=== PATIENT | female | born 1995 | race Caucasian/White ===

== ENCOUNTER 2017-09-14 08:23 | Outpatient (CLI) | payer OTHER ==
--- NOTE | 2017-09-14 13:09 | Ultrasound Report ---
COMPLETE ABDOMINAL ULTRASOUND: 09/14/2017 CLINICAL INDICATION: Pain. TECHNIQUE: Real-time scanning was performed with product representative static images obtained. FINDINGS: The liver measures 14.6 cm. Hepatic echotexture is normal. No intrahepatic biliary dilatat ion or focal parenchymal lesion is present. The common bile duct measures 3 mm. The gallbladder is un remarkable, as is the pancreas. The kidneys are normal, with the right measuring 10.8 cm, and the lef t measuring 11.1 cm. The spleen measures 11.6 cm, and demonstrates normal echotexture. The abdominal aorta is normal in caliber throughout. The inferior vena cava is unremarkable. No free fluid is prese nt. IMPRESSION: NORMAL ABDOMINAL ULTRASOUND. JOB #: [id number] EXT JOB #:[id number]
--- NOTE | 2017-09-14 13:25 | Ultrasound Report ---
PELVIC ULTRASOUND: 09/14/2017 CLINICAL INDICATION: Right lower quadrant pain. TECHNIQUE: Transabdominal pelvic ultrasound performed for global evaluation. Transvaginal pelvic ultr asound performed for detailed evaluation. Real-time scanning performed and static images obtained. FINDINGS: The uterus is anteverted, measuring 7.0 x 4.0 x 2.9 cm. The endometrial echo complex measu res 6 mm. There is an IUD present, but it is positioned low in the endometrial canal, extending into the lower uterine segment/upper cervix. No focal myometrial lesion is present. The ovaries are normal , with the right measuring 3.8 x 2.9 x 2.2 cm, and the left measuring 3.4 x 2.7 x 1.6 cm. No free flu id is present. IMPRESSION: IUD POSITIONED LOW IN THE ENDOMETRIAL CANAL, EXTENDING INTO THE UPPER CERVIX. NORMAL OVA ISREAL. JOB #: [id number] EXT JOB #:[id number]
== END 2017-09-14 08:24 | disposition home or self-care (01) ==
LOC: DI 08:23
PROVIDERS: ATTEND Physician Assistant Medical
DX: R10.31 Right lower quadrant pain (principal)
CPT/HCPCS: 76700; 76830; 76856

== ENCOUNTER 2022-01-05 21:04 | Emergency (ER) | payer SELFPAY ==
[2022-01-05 21:37] LABS: BASOPHILS % (AUTO) 0.1 %; EOSINOPHILS % (AUTO) 0.4 %; HCT - HEMATOCRIT 40.7 % (37.0-47.0); HGB - HEMOGLOBIN 13.4 g/dL (12.0-16.0); LYMPHOCYTES # (AUTO) 1.7 10^3/uL (1.5-3.5); LYMPHOCYTES % (AUTO) 17.6 %; MEAN CORPUSCULAR HEMOGLOBIN 32.1 pg (27.0-31.0); MEAN CORPUSCULAR HGB CONC 32.9 g/dL (32.0-36.0); MEAN CORPUSCULAR VOLUME 97.6 fL (81.0-99.0); MEAN PLATELET VOLUME 9.8 fL (7.9-10.8); MONOCYTES # (AUTO) 0.8 10^3/uL (0.0-1.0); MONOCYTES % (AUTO) 8.1 %; NEUTROPHILS # (AUTO) 7.2 10^3/uL (1.5-6.6); NEUTROPHILS % (AUTO) 73.6 %; PLT - PLATELET COUNT 262 10^3/uL (130-450); RED BLOOD COUNT 4.17 10^6/uL (4.20-5.40); RED CELL DISTRIBUTION WIDTH 13.1 % (12.0-15.0); WHITE BLOOD COUNT 9.8 x10^3/uL (4.8-10.8)
[2022-01-05 21:48] LABS: ALBUMIN 4.3 g/dL (3.2-5.5); ALBUMIN/GLOBULIN RATIO 1.4 (1.0-2.2); BILIRUBIN,TOTAL 0.8 mg/dL (0.2-1.0); CREATININE 0.8 mg/dL (0.4-1.0); POTASSIUM 3.8 mmol/L (3.5-5.0); TOTAL PROTEIN 7.3 g/dL (6.7-8.2)
[2022-01-05 23:12] LABS: BILIRUBIN,URINE NEGATIVE (NEGATIVE); GLUCOSE, URINE (UA) NEGATIVE (NEGATIVE); KETONES,URINE (UA) NEGATIVE (NEGATIVE); LEUKOCYTE ESTERASE, URINE TRACE (NEGATIVE); NITRITE,URINE NEGATIVE (NEGATIVE); OCCULT BLOOD,URINE NEGATIVE (NEGATIVE); PH,URINE 7.5 PH (5.0-7.5); PROTEIN,URINE NEGATIVE (NEGATIVE); UROBILINOGEN,URINE 0.2 (NORMAL) E.U./dL (NORMAL)
[2022-01-05 23:13] LABS: CLARITY,URINE CLEAR (CLEAR); HCG UR QUAL NEGATIVE
[2022-01-05 23:19] LABS: BACTERIA,URINE Rare /HPF (None Seen); RBC,URINE None Seen /HPF (0-5); SQUAMOUS EPITHELIAL CELL,UR MANY Squamous (<= Few)
[2022-01-05] MEDS ORDERED: KETOROLAC 30 MG/ML VIAL IM STA (23:38)
--- NOTE | 2022-01-05 23:41 | ED Physician Documentation ---
History of Present Illness - Stated complaint Stated Complaint: UPPER RT ABD PX - Chief complaint Chief Complaint: Abd Pain - History obtained from History obtained from: Patient - Additonal information Additional information: 26-year-old woman, previously healthy p/w 4 months of RUQ abdominal pain / R lower rib pain intermittent, constant during the day today since waking from sleep with sudden onset pain. nonradiating, aching, worse with deep breathing and twisting. 7/10, better with ibuprofen. denies fever, back pain, n/v. some loose stools for the past week. no urinary sx. denies soa or cough, no cp. perc negative. Review of Systems Ten Systems: 10 systems reviewed and negative Constitutional: denies: Fever, Chills Cardiac: denies: Chest pain / pressure Respiratory: denies: Dyspnea, Cough GI: reports: Abdominal Pain, Other (loose stools X 1 wk). denies: Nausea, Vomiting : denies: Dysuria, Frequency, Hematuria Skin: denies: Rash Musculoskeletal: denies: Back pain PD PAST MEDICAL HISTORY - Past Medical History Neuro: None HEENT: None - Past Surgical History Past Surgical History: No - Present Medications Home Medications: Ambulatory Orders Medication Instructions Recorded Confirmed Ketorolac [Toradol] 10 mg PO Q6H PRN #30 tablet 01/05/22 - Allergies Allergies/Adverse Reactions: Allergies Allergy/AdvReac Type Severity Reaction Status Date / Time No Known Drug Allergies Allergy Verified 01/05/22 21:17 - Social History Does the pt smoke?: Yes Smoking Status: Current every day smoker Does the pt drink ETOH?: Yes PD ED PE NORMAL - Vitals Vital signs reviewed: Yes - General General: Alert and oriented X 3, No acute distress, Well developed/nourished - HEENT HEENT: Atraumatic, PERRL, EOMI - Neck Neck: Supple, no meningeal sign - Cardiac Cardiac: RRR, Other (R lower ribs ttp with reproducible pain) - Respiratory Respiratory: No respiratory distress, Clear bilaterally - Abdomen Abdomen: Non tender, Non distended, Other (negative hamlin sign) - Back Back: No CVA TTP - Derm Derm: Normal color, Warm and dry - Extremities Extremities: No deformity - Neuro Neuro: Alert and oriented X 3, No motor deficit, No sensory deficit - Psych Psych: Normal mood, Normal affect Results - Vitals Vitals: Vital Signs - 24 hr 01/05/22 21:17 Temperature 37.0 C Heart Rate 90 Respiratory 16 Rate Blood Pressure 138/77 H O2 Saturation 99 Oxygen O2 Source Room air - Labs Labs: Laboratory Tests 01/05/22 01/05/22 01/05/22 21:30 21:30 23:05 WBC 9.8 RBC 4.17 L Hgb 13.4 Hct 40.7 MCV 97.6 MCH 32.1 H MCHC 32.9 RDW 13.1 Plt Count 262 MPV 9.8 Neut # (Auto) 7.2 H Lymph # (Auto) 1.7 [place] # (Auto) 0.8 Eos # (Auto) 0.0 Baso # (Auto) 0.0 Absolute Nucleated RBC 0.00 Nucleated RBC % 0.0 Sodium 138 Potassium 3.8 Chloride 104 Carbon Dioxide 25 Anion Gap 9.0 BUN 14 Creatinine 0.8 Estimated GFR (MDRD) 86 L Glucose 90 Calcium 9.0 Total Bilirubin 0.8 AST 19 ALT 19 Alkaline Phosphatase 41 L Total Protein 7.3 Albumin 4.3 Globulin 3.0 Albumin/Globulin Ratio 1.4 Lipase 29 Urine Color YELLOW Urine Clarity CLEAR Urine pH 7.5 Ur Specific [place] 1.020 Urine Protein NEGATIVE Urine Glucose (UA) NEGATIVE Urine Ketones NEGATIVE Urine Occult Blood NEGATIVE Urine Nitrite NEGATIVE Urine Bilirubin NEGATIVE Urine Urobilinogen 0.2 (NORMAL) Ur Leukocyte Esterase TRACE H Urine RBC None Seen Urine WBC 4-5 Ur Squamous Epith Cells MANY Squamous H Urine Bacteria Rare Ur Microscopic Review INDICATED Urine Culture Comments NOT INDICATED Urine HCG, Qual NEGATIVE PD MEDICAL DECISION MAKING - ED course ED course: 26yF p/w R lower rib pain X 4 months, worsening today. 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 low suspicion GB pathology given benign abdminal exam. CXR clear. toradol provided with improvement. return precautions given and symptomatic care advised. Departure - Departure Clinical Impression: Chest wall muscle strain Condition: Stable Instructions: ED Chest Pain Costochondritis Prescriptions: Ketorolac [Toradol] 10 mg PO Q6H PRN #30 tablet PRN Reason: Pain Comments: You were seen in the emergency department for evaluation of right upper abdominal and right lower rib pain. your lab work was normal. Your chest x-ray looks normal as well. You can take Toradol as needed for pain and follow-up with Dr. 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 Return to the emergency department if you have any new or worsening symptoms or other concerns.
--- NOTE | 2022-01-06 00:59 | XRAY Report ---
PROCEDURE: Chest 2 View X-Ray INDICATIONS: R lower rib pain TECHNIQUE: 2 view(s) of the chest. COMPARISON: None. FINDINGS: Surgical changes and devices: None. Lungs and pleura: No pleural effusions or pneumothorax. Lungs are clear. Mediastinum: Mediastinal contours are normal. Heart size is normal. Bones and chest wall: No suspicious bony abnormalities. Soft tissues appear unremarkable. IMPRESSION: No acute process. Reviewed by: Rossana Fox MD on 01/06/2022 12:58 AM [facility] Approved by: Rossana Fox MD on 01/06/2022 12:58 AM [facility] Station ID: [id number]
[2022-01-06 01:10] VITALS: BP 118/70
== END 2022-01-06 01:09 | disposition home or self-care (01) ==
LOC: ED 21:04
DX: S29.011A Strain of muscle and tendon of front wall of thorax, initial encounter (principal); X58.XXXA Exposure to other specified factors, initial encounter; F17.200 Nicotine dependence, unspecified, uncomplicated
CPT/HCPCS: 36415; 80053; 81001; 81003; 81025; 83690; 85025; 87086; 96372; 99282; 99284

== ENCOUNTER 2023-12-26 15:30 | Outpatient (CLI) | payer OTHER | END 2023-12-26 15:31 | disposition left against medical advice (07) | LOC: EMS 15:30 | DX: S60.212A Contusion of left wrist, initial encounter (principal); S01.81XA Laceration without foreign body of other part of head, initial encounter; V43.53XA Car driver injured in collision with pick-up truck in traffic accident, initial encounter; Y92.413 State road as the place of occurrence of the external cause ==

== ENCOUNTER 2023-12-26 16:28 | Emergency (ER) | payer OTHER ==
[2023-12-26 17:07] VITALS: BP 113/78; O2SAT 100
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
[2023-12-26] MEDS: TETANUS/DIPHTHERIA/PERTUSSIS 0.5 ML SYRINGE IM ONE (17:14)
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
[2023-12-26] MEDS: IBUPROFEN 800 MG TABLET PO STA (18:05)
== END 2023-12-26 18:21 | disposition home or self-care (01) ==
LOC: ED 16:28
DX: S01.81XA Laceration without foreign body of other part of head, initial encounter (principal); S63.602A Unspecified sprain of left thumb, initial encounter; S40.022A Contusion of left upper arm, initial encounter; V43.52XA Car driver injured in collision with other type car in traffic accident, initial encounter; Y92.410 Unspecified street and highway as the place of occurrence of the external cause; Z23 Encounter for immunization
CPT/HCPCS: 12004; 73110; 90471; 90715; 99283; A9270